=== PATIENT | female | born 1960 | race Caucasian/White ===

== ENCOUNTER 2024-01-27 07:26 | Day surgery (SDC) | payer BC ==
[2024-01-19 15:53] LABS: BASOPHILS # (AUTO) 0.1 X10'3 (0-0.2); BASOPHILS % (AUTO) 1.4 % (0-1); EOSINOPHILS # (AUTO) 0.3 X10'3 (0-0.9); EOSINOPHILS % (AUTO) 5.6 % (0-6); LYMPHOCYTES # (AUTO) 1.8 X10'3 (1.1-4.8); LYMPHOCYTES % (AUTO) 35.2 % (21-51); MEAN CORPUSCULAR HEMOGLOBIN 29.4 PG (27.0-31.0); MEAN CORPUSCULAR HGB CONC 33.4 g/dL (33.0-36.5); MEAN CORPUSCULAR VOLUME 88.1 FL (78-98); MEAN PLATELET VOLUME 9.6 FL (7.4-10.4); MONOCYTES # (AUTO) 0.5 X10'3 (0-0.9); MONOCYTES % (AUTO) 10.8 % (2-12); NEUTROPHILS # (AUTO) 2.4 X10'3 (1.8-7.7); PRE OP HEMOGLOBIN 13.4 g/dL (12.0-16.0); PRE OP PLATELET COUNT 213 X10'3 (140-440); RED BLOOD COUNT 4.54 X10'6 (4.20-5.60); RED CELL DISTRIBUTION WIDTH 13.7 % (11.5-14.5)
[2024-01-19 16:07] LABS: BLOOD UREA NITROGEN 9 MG/DL (7-18); BUN/CREATININE RATIO 12.5 (10.0-20.0); CALCIUM 9.6 MG/DL (8.5-10.1); CHLORIDE 102 MMOL/L (99-107); CREATININE 0.72 MG/DL (0.40-0.90); PRE OP ANION GAP 7 (8-16); PRE OP BILIRUB, TOTAL 0.4 MG/DL (0.0-1.0); PRE OP GLUCOSE 89 MG/DL (70-104); PRE OP POTASSIUM 4.1 MMOL/L (3.4-5.1); PRE OP SODIUM 140 MMOL/L (135-145); TOTAL CARBON DIOXIDE 30.6 MMOL/L (24-32); TOTAL PROTEIN 8.3 G/DL (6.4-8.2); eGFR 82 ML/MIN
[2024-01-19 16:08] LABS: ALBUMIN 4.5 G/DL (3.4-5.0); ALBUMIN/GLOBULIN RATIO 1.2 (1.1-1.5); ALKALINE PHOSPHATASE 72 IU/L (46-116); PRE OP ALT 26 U/L (30-65); PRE OP AST 34 U/L (10-37)
[~2024-01-27] VITALS: Ht 154.9 cm; Wt 43.2 kg
[2024-01-27] VITALS (13 sets, daily range): BP systolic 122–163; BP diastolic 69–108; PULSE 53–86; RESP 11–16; TEMP 98.8; O2SAT 96–100
[2024-01-27] MEDS: cefazolin 2gm/D5W 100mL 100 ML IV ONE (05:30)
[~2024-01-27 07:26] MED LIST: BUPIVAcaine/PF 2.5mg/ml (0.25%) 10ml vial ONE; LEVO25TA7; LIDOcaine 1% 30ml preserv. free vial ONE; LIDOcaine 2% (20mg/ml) 5ml vial ONE; ondansetron/PF 4mg/2ml inj ONE; propofol inj 20 ML IV ONE; rocuronium 10mg/ml inj IV ONE
[2024-01-27] MEDS: famotidine 20mg tablet PO ONE (07:59)
[2024-01-27] MEDS: INDOCYANINE GREEN 25 MG/10 ML VIAL IV ONE (08:00)
[2024-01-27] MEDS: ringers solution, lacted 1,000 ML IV SCH (08:02)
[2024-01-27] MEDS ORDERED: sevoflurane 250ml liquid IH ONE (09:47)
[2024-01-27] MEDS ORDERED: fentaNYL/PF 50MCG/1 ML 2ML syringe ONE (09:50)
[2024-01-27] MEDS ORDERED: midazolam 1 mg/ML 2ml injection ONE (10:13)
[2024-01-27] MEDS: BUPIVAcaine 2.5mg/ml inj 50ml vial (contains preservative) SQ ONE (10:25)
[2024-01-27] MEDS ORDERED: morphine 2 MG/ML inj. syringe IV PRN (10:50)
[2024-01-27] MEDS ORDERED: ringers solution, lacted 1,000 ML IV SCH (10:50)
[2024-01-27] MEDS ORDERED: proMETHazine 25mg rectal suppository RC PRN (10:50)
[2024-01-27] MEDS ORDERED: morphine 4 MG/ML inj SYRINge IV PRN (10:50)
[2024-01-27] MEDS ORDERED: fentaNYL/PF 50MCG/1 ML 2ML syringe IV PRN (10:50)
[2024-01-27] MEDS ORDERED: neostigmine methylsulfate 1 MG/ML 10ml vial ONE (11:06)
[2024-01-27] MEDS ORDERED: glycopyrrolate 0.2mg/ml inj ONE (11:06)
[2024-01-27] MEDS ORDERED: acetaminophen 325mg tablet PO PRN (11:40)
[2024-01-27] MEDS: ondansetron/PF 4mg/2ml inj IV PRN (11:45)
[2024-01-27] MEDS: proCHLORperazine 10 MG/2 ml inj IV PRN (11:54)
[2024-01-27] MEDS: scopolamine 1MG/72H patch 1 PATCH PATCH.TD.3 TD ONE (12:18)
== END 2024-01-27 13:17 | disposition home or self-care (01) ==
LOC: PAS 07:26
PROVIDERS: ATTEND Surgery
DX: K40.90 Unilateral inguinal hernia, without obstruction or gangrene, not specified as recurrent (principal); K80.20 Calculus of gallbladder without cholecystitis without obstruction; I10 Essential (primary) hypertension; E03.9 Hypothyroidism, unspecified; Z79.890 Hormone replacement therapy; Z82.49 Family history of ischemic heart disease and other diseases of the circulatory system
CPT/HCPCS: 36415; 47563; 49650; 80053; 82948; 85025; 93005; C1781; J0131; J0690; J0780; J1100; J2250; J2405; J2704; J2710; J3010; J3490; J7030; J7120; S2900; Z7506; Z7508; Z7512; A4215; A4618; A7000